=== PATIENT | female | born 1985 | race African-American/Black ===

== ENCOUNTER 2017-08-01 17:28 | Emergency (ER) | payer OTHER ==
[~2017-08-01] VITALS: Ht 167.6 cm; Wt 71.7 kg
[~2017-08-01 17:28] MED LIST: ADULT LOW DOSE81 MG PO; ASPIR 8181 M1 PO; ASPIR 8181 MG PO; BENADRYL25 MG PO; CIPROFLOXACIN500 M1 PO; COREG3.125 MG PO; COREG6.25 MG PO; IBUPROFEN 600600 M1 PO; IBUPROFEN 800800 M1 PO; LABETALOL HCL200 MG PO; LISINOPRIL-HCT1 EAC1 PO; LISINOPRIL-HCT1 EAC2 PO; LOPRESSOR50 PO; NORCO 5-325 TA1 EACH PO; NORVASC10 MG PO; NORVASC5 MG PO; PERCOCET 5-3251 EACH PO; PREDNISONE 20 M20 MG PO; PRINZIDE 20-251 EACH PO; ROBAFEN AC SYR120 ML PO; TYLENOL EXTRA500 MG PO; TYLENOL325 MG PO; VENTOLIN HFA 1818 GM INH
[2017-08-01] MEDS ORDERED: TRAMADOL 50 MG50 MG PO (18:17)
[2017-08-01] MEDS ORDERED: HYDROCODONE-AP1 EAC6 PO (19:21)
[2017-08-01] MEDS ORDERED: COLACE100 MG PO (19:21)
[2017-08-01 19:46] VITALS: BP 160/100
== END 2017-08-01 19:48 | disposition home or self-care (01) ==
LOC: ER 17:28
DX: K42.9 Umbilical hernia without obstruction or gangrene (principal); I10 Essential (primary) hypertension; Z88.0 Allergy status to penicillin; Z98.890 Other specified postprocedural states

== ENCOUNTER 2018-04-05 06:15 | Inpatient (IN) | payer OTHER ==
[~2018-04-05] VITALS: Ht 167.6 cm; Wt 73.4 kg
--- NOTE | ~2018-04-05 | EKG ---
[address] [address] ELECTROCARDIOGRAM REPORT Name: MIKE ROBBINS Room #: 428-P ADM IN M.R.#: [id number] Admission: 04/05/18 Attend Phys: Cricket Samano MD Discharge: Date of : 83 Report #: [id number] THIS REPORT FOR: //name// [facility] ED Test Date: 2018-04-05 Test Time: 06:55:56 Pat Name: MIKE ROBBINS Department: Room: [facility] Gender: F Technical Business Analyst: walter fernandez : 1985 Requested By: Delia Waller Order Number: [id number] MD: Emilio Dexter Measurements Intervals [place] Rate: 95 P: -7 VT: 152 QRS: 4 QRSD: 93 T: 132 QT: 373 QTc: 469 Interpretive Statements Sinus rhythm Multiple ventricular premature complexes LVH with secondary repolarization abnormality Compared to ECG 03/24/2016 15:27:20 Electronically Signed On 04-07-2018 17:25:57 CDT by Emilio Dexter [email or web address] <ELECTRONICALLY SIGNED> By: Emilio Dexter MD 04/07/18 [id number] Emilio Dexter MD /MARGRET
--- NOTE | ~2018-04-05 | HC ---
[facility] [place] [address] CONSULTATION Name: MIKE ROBBINS Room #: 428-P ADM IN M.R.#: [id number] Admission: 04/05/18 Attend Phys: Cricket Samano MD Discharge: Date of : 83 Report #: [id number] THIS REPORT FOR: //name// CC: PUJA physician/PCP Cricket Samano DATE OF SERVICE: 04/05/2018 NEPHROLOGY CONSULTATION REASON FOR CONSULTATION: Polycystic kidney disease and chronic kidney disease related to that. 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 At about 4 o'clock this morning, she noticed the acute onset of right flank pain. This was severe and stabbing. It did not improve. She ended up coming to the Emergency Room. She received some pain medication and that made it better, but the pain continued to persist and because of that and other related problems, she was admitted to the hospital. We are asked to see her at this time. The patient states she is still having pain at this time, it is somewhat positional. It has helped when she has gotten the fentanyl, but as soon as it wears off, she has more pain again. She is unaware of previous episodes similar to this. She recalls no flank trauma and no onset with bending or lifting or any other movement. She has not had fevers, chills or sweats. From a kidney standpoint, the patient is aware that she has polycystic kidney disease. She says she has been aware of it for the past year. Her medical records would suggest that it has been known for much longer than that, although she is unaware of that. I have reviewed her CT scan, which was done in the Emergency Room, which shows massively involved cystic kidneys and liver. In fact, the liver is nearly fully replaced by cysts and takes up dramatic amount of the abdomen. The kidneys are both dramatically enlarged and pull the retroperitoneum down to and including part of the pelvis. Related to her kidney disease, she states she was seeing a netsuite developer for a while at [facility], but that has been a while. Apparently, her insurance has changed and more recently, she has been going to [facility], but has not yet established care with a netsuite developer there. She remembers being told around the early portion of 2018 that her creatinine level was in the 4 range. She says she has had one episode previously of a kidney stone on the left side. She has noticed no hematuria. Again, she has not had fevers, chills, night sweats or other symptoms suggesting of infection at this time. [address] [address] CONSULTATION Name: MIKE ROBBINS Room #: 428-P ADM IN M.R.#: [id number] Admission: 04/05/18 Attend Phys: Cricket Samano MD Discharge: Date of : 83 Report #: [id number] PAST MEDICAL HISTORY: Polycystic kidney disease as noted above, autosomal dominant in nature. She had an aortic valve problem as well as ascending aortic aneurysm. She had emergency surgery for that in 2009. In 2016, she was admitted again and eventually was transferred to [facility] for care. 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 She was sent to and all of that was eventually repaired including aortic valve. She is unaware of some of these details, but it looked like that also would have involved a reimplantation of her coronary arteries at that time. She has had 1 additional abdominal procedure. In looking at her CT scan, I cannot tell the exact nature of the graft, but there are some graft materials in her abdomen, not of the abdominal aortic aneurysm per se, but it looks to be a branch off the thoracic aorta that appears to go down and feed some of the abdominal viscera. Additional recent history is that patient recently had a 20-week that was lost to spontaneous , that was at [facility], that occurred just 3 weeks ago in the first week of March. She has 6 living children including one that had to be delivered by emergency section; at that time, her ascending aorta ruptured. She has hypertension associated with polycystic kidney disease. MEDICATIONS: On admission include metoprolol looks like 25 mg daily only and aspirin 81 mg daily. ALLERGIES: LABETALOL, WHICH CAUSED A RASH. FAMILY HISTORY: Both parents are living and apparently in their 50s. It is uncertain when she had polycystic kidney disease, she is unaware of that. Both have some hypertension. She has 5 siblings, unknown if any of them have polycystic kidney disease and her children have not been checked, although there are some that are in their teenage years. SOCIAL HISTORY: The patient is single, lives in [place], [place]. 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 REVIEW OF SYSTEMS: Have been somewhat fatigued. Denies nausea or vomiting. She states she is 20-30 pounds piling setter than she was a year or two ago, but no recent change in weight. She states she has been tired since she lost the a couple of weeks ago. She does not frequently have this type of sharp pain. Denies hematuria, had the stone symptoms only once, and this feels different from that. No current dyspnea or cough, no chest pain component. No problems with edema. PHYSICAL EXAMINATION: GENERAL: A 33-year-old female, obviously in discomfort in her right flank, some difficulty moving, in no other acute distress. VITAL SIGNS: Blood pressure 154/94, heart rate 91, temperature 97.9, [facility] [address] [place] [address] CONSULTATION Name: MIKE ROBBINS Room #: 428-P ADM IN M.R.#: [id number] Admission: 04/05/18 Attend Phys: Cricket Samano MD Discharge: Date of : 83 Report #: [id number] respiratory rate 18, oxygen saturation 100%. HEENT: Shows pupils are equal and reactive. Sclerae are nonicteric. Oral mucosa is moist, without lesions. NECK: Supple without adenopathy, thyromegaly, JVD or bruit. CHEST: Clear bilaterally. CARDIOVASCULAR: Regular rate and rhythm, although some prematurity is noted. ABDOMEN: Dramatically abnormal. There are few bowel sounds present, but they are markedly displaced towards the low midline. Liver is massively enlarged and palpable throughout most of the abdomen. Most discernible edge of the liver is the left side and nearly extends down to the pelvis. Due to discomfort, it is difficult to get her to lie flat and I cannot palpate the kidneys. EXTREMITIES: Show no peripheral edema, 1+ peripheral pulses. CT scan was reviewed in it is a dramatic representation of far advanced polycystic kidney disease of the autosomal dominant type. Both kidneys are dramatically enlarged, nearly fully replaced by numerous multisite cysts. Similarly, the entire liver is nearly replaced and is dramatically enlarged. The prior graft is noted coming off the thoracic aorta. No current aortic aneurysm or signs of rupture. LABORATORY DATA: Sodium 140, potassium 3.8, chloride 107, bicarbonate 20, BUN 47, creatinine 5.4, glucose 99. Calcium 8.4, total protein 7.8, albumin 2.7. White count 7.0, hemoglobin 8.6, hematocrit 24.7, platelets 218,000. Differential on the white count, 85 segs, 8 lymphs, 5 monos, 1 eosinophil. Urinalysis: Specific gravity 1.015, pH 6.0, 1+ protein, trace blood, 0-5 white cells, 0-2 red cells. ASSESSMENT: 1. Autosomal dominant polycystic kidney disease with symptoms suggesting a ruptured cyst. Due to the massive involvement of both liver and kidneys and the location in the right flank, it is impossible to tell whether this was a kidney cyst rupture or a hepatic cyst rupture. Nevertheless, she has pain consistent with that. The pain gets better with analgesia and then analgesics need to be continued. The other main question at this point is whether there is any infection involved. She has no fever or chills. No night sweats. No leukocytosis. At this point, any treatment would be empiric. I think actually we could stop her antibiotics and see going forward if she has anything further suggesting infection. If there is a suggestion of that, we would recommend switching to Cipro as it is the best of the antibiotics as far as penetrating the cysts and we would want to treat any cystic infection. The ceftriaxone will have some penetration but this is not as good as the Cipro. 2. Chronic kidney disease, stage 5. She is well advanced in her course. This is consistent with a massive size of her kidneys. The fact that her creatinine was 4 about 9 months ago and it is 5 now suggest she may be reaching the more abrupt decline stage of progressive polycystic kidney disease. She was not uremic at that time, but she will need nephrologic attention. She needs to be [facility] [address] [place] [address] CONSULTATION Name: MIKE ROBBINS Room #: 428-P ADM IN Gail.#: [id number] Admission: 04/05/18 Attend Phys: Cricket Samano MD Discharge: Date of : 83 Report #: [id number] making plans for renal replacement therapy down the line and that may come sooner than later based upon her recent time course. I spent a long time talking with the patient about polycystic kidneys, the natural history, what we know about her current situation. Again, she needs to be fully aware of all this and needs to be making some decisions because her life is going to be changing a lot in the next few months, I suspect. We also talked about the inheritance pattern. She is unaware of polycystic kidney disease in her parents and obviously she needs know about this with her 6 children. In addition, she is not uremic at this time, I do not think we need to be treating anything from that standpoint. We just need to basically treat with analgesia and get her on her feet and get her going. She could do with the rest of this on an outpatient basis. 3. Prior rupture of the ascending aorta. An increased incidence of this with autosomal dominant polycystic kidney disease that had two repairs, one with an emergent treatment when it was ruptured and the second when the aortic valve was replaced and the ascending aorta was again redone. 4. Additional mkuug-su-fleyrgce graft as is imaged on her CT scan. 5. Hypertension, currently fairly well controlled. 6. Recent spontaneous at 20-week . PLAN: 1. Continue the analgesia she is getting, this would start to ease up in the next 24-48 hours and then convert to oral analgesics. 2. I do not think she needs the IV antibiotics at this point. 3. Some additional IV fluid is fine, although it would not make much difference in her renal function. 4. She will need extensive long-term management with her polycystic kidney disease. We will talk to her more about how she wants to go about that. She says she is set up at [facility] and we will defer to that unless she changes her mind. 5. Continue metoprolol for blood pressure control. 6. All discussed further with the patient going forward. Obviously, this is a very complex situation. <ELECTRONICALLY SIGNED> By: Ashu Woodward MD 04/07/18 0722 [id number] 1820 Ashu Woodward MD /nt
[~2018-04-05 06:15] MED LIST changes: +COLACE100 MG PO; +HYDROCODONE-AP1 EAC6 PO; +TRAMADOL 50 MG50 MG PO
[2018-04-05 06:17] VITALS: BP 175/83
[2018-04-05] MEDS ORDERED: TOPROL XL25 MG PO (07:01)
[2018-04-05 07:03] LABS: BASOPHILS 0.5 % (0.0-2.0); EOSINOPHILS 1.3 % (0.0-3.0); HEMATOCRIT 24.7 % (37.0-47.0); HEMOGLOBIN 8.6 gm/dL (12.0-15.0); LYMPHOCYTES 8.1 % (24.0-44.0); MCH 32.5 pg (26.0-34.0); MONOCYTES 5.5 % (1.0-8.0); PLATELET COUNT 218 thou/uL (150-400); POLYS 84.6 % (36.0-66.0); RBC 2.66 mil/uL (4.20-5.00); RDW 14.3 % (10.5-14.5)
[2018-04-05 07:12] LABS: ANION GAP 13 mmol/L (7-16); BUN 47 mg/dL (7-18); CALCIUM 8.4 mg/dL (8.5-10.1); CHLORIDE 107 mmol/L (98-107); CO2 20 mmol/L (21-32); CREATININE 5.4 mg/dL (0.6-1.0); GLUCOSE 99 mg/dL (74-106); POTASSIUM 3.8 mmol/L (3.5-5.1); SODIUM 140 mmol/L (136-145)
[2018-04-05 07:20] LABS: ALBUMIN 2.7 g/dL (3.4-5.0); SGOT 13 U/L (15-37); SGPT 10 U/L (30-65); TOTAL BILIRUBIN 0.3 mg/dL (<0.1-1.0); TOTAL PROTEIN 7.8 g/dL (6.4-8.2); TROPONIN-I <0.06 ng/mL (<0.06)
[2018-04-05 08:03] LABS: URINE BILIRUBIN NEGATIVE (Negative); URINE BLOOD TRACE (Negative); URINE CLARITY CLEAR; URINE COLOR YELLOW; URINE GLUCOSE-RANDOM* NEGATIVE (Negative); URINE KETONES NEGATIVE (Negative); URINE NITRITE-REFLEX NEGATIVE (Negative); URINE PROTEIN (DIPSTICK) 1+ (Negative); URINE SPECIFIC GRAVITY 1.015 (1.005-1.035); URINE UROBILINOGEN 0.2 E.U./dl (0.2-1.0)
[2018-04-05 08:04] LABS: URINE LEUKOCYTES-REFLEX TRACE (Negative)
[2018-04-05 08:12] LABS: BACTERIA-REFLEX 1-9 Few /HPF (None Seen); CASTS None Seen /LPF (None Seen); CRYSTALS None Seen /LPF (None Seen); SQUAMOUS None Seen /LPF (0-3); URINE RBC 0-2 Rare /HPF (0-2); URINE WBC-REFLEX 0-5 Rare /HPF (0-5)
[2018-04-05 09:46] VITALS: BP 147/79
[2018-04-05 10:15] VITALS: BP 142/75
[2018-04-05 10:42] VITALS: BP 154/94
[2018-04-05 15:38] VITALS: BP 138/83
[2018-04-05 21:00] VITALS: BP 136/72
[2018-04-06 04:30] VITALS: BP 148/83
[2018-04-06 06:13] LABS: MCH 31.5 pg (26.0-34.0); MCHC 33.3 g/dL (28.0-37.0); MCV 94.6 fL (80.0-100.0); RBC 2.22 mil/uL (4.20-5.00); RDW 14.4 % (10.5-14.5); WBC 6.7 thou/uL (4.0-11.0)
[2018-04-06 06:26] LABS: ALBUMIN 2.1 g/dL (3.4-5.0); CALCIUM 7.8 mg/dL (8.5-10.1); CREATININE 4.9 mg/dL (0.6-1.0); POTASSIUM 3.7 mmol/L (3.5-5.1)
[2018-04-06 07:49] VITALS: BP 156/80
[2018-04-06 16:22] VITALS: BP 162/99
[2018-04-06 19:59] VITALS: BP 143/81
[2018-04-07 04:54] VITALS: BP 150/72
[2018-04-07 06:19] LABS: HEMATOCRIT 20.5 % (37.0-47.0); HEMOGLOBIN 6.9 gm/dL (12.0-15.0); MCH 31.4 pg (26.0-34.0); MCHC 33.6 g/dL (28.0-37.0); MCV 93.5 fL (80.0-100.0); RBC 2.19 mil/uL (4.20-5.00); WBC 6.1 thou/uL (4.0-11.0)
[2018-04-07 06:27] LABS: ALBUMIN 2.1 g/dL (3.4-5.0); CALCIUM 8.6 mg/dL (8.5-10.1); PHOSPHORUS 4.8 mg/dL (2.5-4.9); POTASSIUM 3.9 mmol/L (3.5-5.1)
[2018-04-07 06:31] LABS: % SATURATION 3 % (20-39); IRON 7 ug/dL (50-170); TIBC 201 ug/dL (250-450)
[2018-04-07 08:28] VITALS: BP 163/92
[2018-04-07 14:55] VITALS: BP 120/76
[2018-04-07 17:09] VITALS: BP 144/71
[2018-04-07 20:58] VITALS: BP 153/76
[2018-04-07 23:57] VITALS: BP 173/93
[2018-04-08 03:41] VITALS: BP 135/61
[2018-04-08 07:25] LABS: HEMATOCRIT 23.8 % (37.0-47.0); HEMOGLOBIN 8.2 gm/dL (12.0-15.0)
[2018-04-08] MEDS ORDERED: IRON325 PO (09:59)
[2018-04-08 11:44] VITALS: BP 135/61
[2018-04-08 11:50] VITALS: BP 135/61
[2018-04-08 11:52] VITALS: BP 135/61
== END 2018-04-08 14:55 | disposition home or self-care (01) | DRG 698 ==
LOC: ER 06:15 → 4E 09:38 → EROBS 09:38 → 4E 10:37 → ENTRNSPT 04-08 14:48 → EDTRNSPTSTS 04-08 14:50 → 4E 04-08 14:55
PROVIDERS: Hospitalist; Nurse Practitioner Acute Care; Student in an Organized Health Care Education/Training Program
PROC: 30233N1 Transfusion of Nonautologous Red Blood Cells into Peripheral Vein, Percutaneous Approach (ICD-10-PCS; principal; 2018-04-07)
DX: Q61.00 Congenital renal cyst, unspecified (principal); E43 Unspecified severe protein-calorie malnutrition; Q61.3 Polycystic kidney, unspecified; N39.0 Urinary tract infection, site not specified; I12.0 Hypertensive chronic kidney disease with stage 5 chronic kidney disease or end stage renal disease; K76.89 Other specified diseases of liver; N17.9 Acute kidney failure, unspecified; N18.5 Chronic kidney disease, stage 5; N28.9 Disorder of kidney and ureter, unspecified; D50.0 Iron deficiency anemia secondary to blood loss (chronic); Z95.2 Presence of prosthetic heart valve; Z79.899 Other long term (current) drug therapy; Z79.82 Long term (current) use of aspirin; Z88.8 Allergy status to other drugs, medicaments and biological substances; Z82.49 Family history of ischemic heart disease and other diseases of the circulatory system; Z84.1 Family history of disorders of kidney and ureter; Z87.442 Personal history of urinary calculi
CPT/HCPCS: 10183

== ENCOUNTER 2018-04-16 09:15 | Emergency (ER) | payer OTHER ==
[~2018-04-16] VITALS: Ht 167.6 cm; Wt 71.7 kg
[~2018-04-16 09:15] MED LIST changes: +IRON325 PO; +TOPROL XL25 MG PO
[2018-04-16 09:49] LABS: URINE BILIRUBIN NEGATIVE (Negative); URINE BLOOD TRACE (Negative); URINE CLARITY CLEAR; URINE COLOR YELLOW; URINE GLUCOSE-RANDOM* NEGATIVE (Negative); URINE KETONES NEGATIVE (Negative); URINE NITRITE-REFLEX NEGATIVE (Negative); URINE PROTEIN (DIPSTICK) 2+ (Negative); URINE SPECIFIC GRAVITY 1.015 (1.005-1.035); URINE UROBILINOGEN 0.2 E.U./dl (0.2-1.0)
[2018-04-16 09:50] LABS: ABSOLUTE NEUTROPHILS 4.9 thou/uL (1.4-8.2); BASOPHILS 0.6 % (0.0-2.0); EOSINOPHILS 0.8 % (0.0-3.0); HEMATOCRIT 22.7 % (37.0-47.0); HEMOGLOBIN 7.7 gm/dL (12.0-15.0); LYMPHOCYTES 9.4 % (24.0-44.0); MCH 31.3 pg (26.0-34.0); MCHC 33.8 g/dL (28.0-37.0); MCV 92.7 fL (80.0-100.0); MONOCYTES 6.7 % (1.0-8.0); PLATELET COUNT 416 thou/uL (150-400); POLYS 82.5 % (36.0-66.0); RBC 2.45 mil/uL (4.20-5.00); RDW 15.3 % (10.5-14.5); WBC 5.9 thou/uL (4.0-11.0)
[2018-04-16 09:50] LABS: URINE LEUKOCYTES-REFLEX 1+ (Negative)
[2018-04-16 10:04] LABS: CALCIUM 8.8 mg/dL (8.5-10.1); CREATININE 5.4 mg/dL (0.6-1.0); POTASSIUM 3.9 mmol/L (3.5-5.1)
[2018-04-16 10:07] LABS: CASTS None Seen /LPF (None Seen); CRYSTALS None Seen /LPF (None Seen); SQUAMOUS 4-10 Moderate /LPF (0-3); URINE RBC 0-2 Rare /HPF (0-2); URINE WBC-REFLEX 6-15 Few /HPF (0-5)
[2018-04-16 10:08] LABS: BACTERIA-REFLEX 1-9 Few /HPF (None Seen)
[2018-04-16 10:10] LABS: ALBUMIN 2.1 g/dL (3.4-5.0); DIRECT BILIRUBIN 0.1 mg/dL (<0.1-0.3); TOTAL BILIRUBIN 0.3 mg/dL (<0.1-1.0); TOTAL PROTEIN 8.2 g/dL (6.4-8.2)
[2018-04-16] MEDS ORDERED: PHENERGAN 25 MG25 M1 PO (10:38)
[2018-04-16] MEDS ORDERED: HYDROCODONE-AP1 EAC6 PO (12:23)
== END 2018-04-16 12:39 | disposition home or self-care (01) ==
LOC: ER 09:15
PROVIDERS: Emergency Medicine
DX: Q61.2 Polycystic kidney, adult type (principal); R10.9 Unspecified abdominal pain; I10 Essential (primary) hypertension; Z88.5 Allergy status to narcotic agent; Z88.8 Allergy status to other drugs, medicaments and biological substances